=== PATIENT | male | born 1980 | race Caucasian/White ===

== ENCOUNTER 2023-04-04 19:25 | Emergency (ER) | payer OTHER, SELFPAY ==
[2023-04-04 19:36] VITALS: BP 128/78; PULSE 80; RESP 16; O2SAT 100
--- NOTE | 2023-04-04 20:25 | ED.EYEPROB ---
HPI - Eye Problem General Chief complaint: Eye Problems Stated complaint: left eye redness, swelling Time Seen by Provider: 04/04/23 20:15 History of Present Illness HPI Narrative: 42-year-old male reports for evaluation for edema, purulence discharge and redness to his left eye that started today. Patient states his son is being treated for conjunctivitis. Patient states that today his pointed out that he had a eye poker and his left eye. The patient states he was concerned he was really conjunctivitis of uses Sounds eye drop in his eye and now his eye is red, swollen and draining purulent drainage. He reports blurred vision in the affected eye. Denies eye pain, foreign body sensation, injury or trauma to the eye, headache, Fever. Patient does wear contacts but he presents wearing glasses. Related Data Allergies Allergy/AdvReac Type Severity Reaction Status Date / Time No Known Allergies Allergy Verified 04/04/23 20:14 Review of Systems Review of Systems: CONSTITUTIONAL: Denies fever, chills, or sweats. EYES: See HPI ENT: Denies rhinorrhea, congestion, sore throat, or otalgia. CARDIOVASCULAR: Denies chest pain, palpitations, or edema. RESPIRATORY: Denies cough or dyspnea. GASTROINTESTINAL: Denies abdominal pain, nausea, vomiting, or diarrhea. GENITOURINARY: Denies dysuria or hematuria. SKIN: Denies rash or itching. MUSCULOSKELETAL: Denies back pain, joint pain, or myalgia. NEUROLOGIC: Denies headache, numbness, or weakness. PSYCHIATRIC: Denies anxiety or depression. Exam Narrative: GENERAL: Well-appearing, well-nourished, and in no acute distress. HEAD: Normocephalic, atraumatic. EYES: bilateral eyes PERRLA. EOMI. Left eye with erythematous conjunctiva, chemosis, purulent drainage and surrounding upper and lower lid edema. R eye with mildly injected conjunctiva and purulent drainage. For seen standing shows no large ulcerations or abrasions, no dendritic lesions or other abnormalities. No surrounding erythema /cellulitis to bilateral eyes. Ocular pressure is 12 in R eye and 24 in L eye. ENT: Nares clear, no rhinorrhea or epistaxis. Mucous membranes moist. Bilateral TMs are valderrama and nonbulging. Normal canals NECK: Supple. CHEST: Clear to auscultation. No respiratory distress. HEART: Regular rate and rhythm. No murmur heard. Normal peripheral pulses. EXTREMITIES: Normal range of motion. No edema. SKIN: Warm, dry, no rash. NEURO: No focal deficits. Alert and oriented x3 Course Vital Signs Vital signs: Vital Signs Pulse Rate 80 04/04/23 19:36 Respiratory Rate 16 04/04/23 19:36 Blood Pressure 128/78 04/04/23 19:36 Pulse Oximetry 100 04/04/23 19:36 Oxygen Delivery Room Air 04/04/23 19:36 Pulse Rate 65 04/04/23 22:50 Respiratory Rate 19 04/04/23 22:50 Blood Pressure 120/87 04/04/23 22:50 Pulse Oximetry 97 04/04/23 22:50 Oxygen Delivery Room Air 04/04/23 19:36 MDM - Eye Problem MDM Narrative Medical decision making narrative: 42-year-old male reports for evaluation for concern for conjunctivitis in his left eye. See HPI for further history. Vitals are stable. Exam is significant for injected and erythematous conjunctiva, purulent drainage, chemosis in the left eye. Extraocular movements are intact. Pupils are equal round and reactive to light. No signs of foreign bodies, open globe injury, acute angle closure glaucoma, orbital cellulitis. Exam is consistent with bacterial conjunctivitis. Visual acuity shows 20/20 in each eye. The patient does wear contacts, will start cipro drops in bilateral eyes. 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 He is traveling back tomorrow. Strict ED return precautions discussed. He is agreeable with the plan and verbalized understanding. D/C in stable condition. Discharge Plan Discharge Clinical Impression: Bacterial conjunctivitis Patient Disposition: Home, S
[2023-04-04] MEDS: CIPROFLOXACIN HCL 0.3% OP SOLN 2.5 ML BTL 1 DROP EACH EYE (22:46)
[2023-04-04 22:50] VITALS: BP 120/87; PULSE 65; RESP 19; O2SAT 97
== END 2023-04-04 22:50 | disposition home or self-care (01) ==
PROVIDERS: Emergency Provider Physician Assistant
DX: H10.89 Other conjunctivitis (principal)
CPT/HCPCS: 99283; A9270